=== PATIENT | female | born 1995 | race Hispanic/Latino ===

== ENCOUNTER 2024-06-15 11:17 | Emergency (ER) | payer OTHER, SELFPAY ==
[2024-06-15 11:26] VITALS: BP 119/88
[2024-06-15 11:52] LABS: % Basophils 0.4 % (0-2); % Eosinophils 0.3 % (0-6); % Immature Granulocytes 0.5 % (0-0.5); % Lymphocytes 21.2 % (20.5-51.1); % Neutrophils 69.6 % (42.2-75.2); Absolute Immature Granulocytes 0.1 10^3/uL (0-0.05); Absolute Lymphocytes 2.1 10^3/uL (1.2-3.4); Absolute Monocytes 0.8 10^3/uL (0.1-0.6); Absolute Neutrophils 6.9 10^3/uL (1.4-6.5); Hematocrit 39.5 % (37.0-47.0); Hemoglobin 13.6 g/dL (12.0-16.0); Mean Corp Hgb Conc. 34.4 g/dL (33.0-37.0); Mean Corpuscular Hgb 29.6 pg (27.0-31.0); Mean Corpuscular Volume 85.9 fL (81.0-99.0); Mean Platelet Volume 10.4 fL (7.4-10.4); Nucleated Red Blood Cells % 0 %; Platelet Count 246 10^3/uL (130-400); Red Cell Dist. Width 12.8 % (11.5-14.5); White Blood Cell Count 9.9 10^3/uL (4.8-10.8)
[2024-06-15 12:01] LABS: HCG, Serum Qualitative Screen Negative
[2024-06-15 12:05] LABS: ALT (SGPT) 21 U/L (0-35); AST (SGOT) 23 U/L (14-36); Albumin 4.8 g/dl (3.5-5.0); Alkaline Phosphatase 61 U/L (38-126); Blood Urea Nitrogen 19 mg/dl (7-17); Carbon Dioxide 23 mmol/L (22-30); Chloride 102 mmol/L (98-107); Glucose 107 mg/dl (70-99); Potassium 4.1 mmol/L (3.5-5.1); Sodium 138 mmol/L (135-145); Total Bilirubin 0.7 mg/dl (0.2-1.3); Total Protein 7.6 g/dl (6.3-8.2); eGFR > 60.00
[2024-06-15 12:36] LABS: TSH Reflex To Free T4 1.08 uIU/ml (0.47-4.68)
[2024-06-15 13:04] VITALS: BP 106/73
[2024-06-15 13:57] LABS: D-Dimer 0.38 ug/mlFEU (0.00-0.50)
[2024-06-15 14:00] VITALS: BP 102/64
--- NOTE | 2024-06-15 14:01 | ED.GENMED ---
History of Present Illness
General
Chief Complaint: Heart Rate Problem
Source: patient
Time Seen by Provider: 06/15/24 13:19
History of Present Illness
History of Present Illness:
29-year-old female with no significant past medical history presenting to the emergency department for evaluation of palpitations that began yesterday morning while she was at work accompanied with some mild chest discomfort with the chest
discomfort persisting today. The triage notes a pins and needle sensation to the left arm however patient and her brother who is with the patient states that the tingling sensation was only when the blood pressure cuff was taking pressure while in
triage. Patient states that she was at work at the time of the event and works as a sales floor team leader but was not doing any activities out of the ordinary. Patient does note that she drinks a fair quantity of caffeine in the mornings but did not drink
any more caffeine than usual last night. Patient denies any recent illnesses, fevers, cough, pleurisy, hemoptysis, lower extremity edema. She does take an oral contraceptive which she has been on for at least 4 years. No other concerns presently.
Family history noncontributory.
Past History
Past History
ED Past Medical History: None
ED Past Surgical History: None
Social History
Tobacco: Non-smoker
Alcohol: None
Drug: None
Personal: Single
Living: with family
Review of Systems
Review of Systems
All Other Systems: ROS reviewed and negative except as documented in HPI and ROS
Phy Exam
Physical Exam
Physical Exam:
GENERAL: Alert , in no apparent distress
EYE: conjunctiva clear
NECK: Supple
ENT: o/p clr, mmm.
CARDIAC: Regular rate and rhythm
LUNGS: Clear breath sounds bilaterally, no acute respiratory distress, no wheezes/rales/rhonchi
NEUROLOGICAL: Alert and oriented
SKIN: Warm and dry, skin intact.
MUSCULOSKELETAL: well perfused.
PSYCH: Normal and appropriate interaction.
Scores
Heart Failure Risk
Heart Failure Risk Score: Not Applicable
Heart Score for Chest Pain Patients
STEMI patient?: Not applicable
Withdrawal Assessment of Alcohol
Withdrawal Assessment Completed?: Not applicable
Course
Orders/Labs/Results
Orders:
Orders
06/15/24 11:18
ECG [Electrocardiogram (*1)] Urgent
Reason for Study: Palpitations
EKG- Treatment ONCE
06/15/24 11:27
Test Result ONCE
06/15/24 11:36
Complete Blood Count/With Diff Urgent
Comprehensive Metabolic Panel Urgent
HCG, Serum Qualitative Screen Urgent
TSH Reflex To Free T4 Urgent
06/15/24 13:32
DDimer [D-Dimer] Urgent
Troponin I Urgent
Abnormal Lab Results
06/15/24
11:36
Abs Immat Gran (auto) 0.1 H 10^3/uL
(0-0.05)
Absolute Neuts (auto) 6.9 H 10^3/uL
(1.4-6.5)
Absolute Monos (auto) 0.8 H 10^3/uL
(0.1-0.6)
BUN 19 H mg/dl
(7-17)
Glucose 107 H mg/dl
(70-99)
06/15/24 11:36
06/15/24 11:36
Vital Signs
Initial and Last Documented VS:
Initial Vital Signs
Temp Pulse Resp BP Pulse Ox
97.8 F 95 16 119/88 100
06/15/24 11:26 06/15/24 11:26 06/15/24 11:26 06/15/24 11:26 06/15/24 11:26
Last Documented Vital Signs
Temp Pulse Resp BP Pulse Ox
97.8 F 76 16 101/73 99
06/15/24 11:26 06/15/24 15:00 06/15/24 15:00 06/15/24 15:00 06/15/24 15:00
MDM/Problems Addressed
Differential Diagnosis Includes:
Caffeine consumption, PE considered given patient is on oral contraceptive, electrolyte disturbance, no symptoms to suggest infectious etiology, I have very minimal suspicion for ACS or other anginal equivalent
MDM/Problems Addressed:
29-year-old female presenting to the emergency department for evaluation of palpitations that began yesterday, resolved today however still with some mild chest discomfort today. Patient hemodynamically stable. EKG done in triage shows a normal
sinus rhythm. Labs were initiated. I did add on a D-dimer and troponin. Dimer was added due to patient being on an oral contraceptive although no other risk factors for PE. Disposition pending
*Pulse Oximetry
Patient hypoxic: no
*EKG
Heart Rate: 92
Rate: normal
Rhythm: sinus
[place]: normal axis
*Crm Campaign Manager Interpretation
Rate: normal
Rhythm: sinus
*Critical Care Note
Total Time (30-74mins, 75-104mins- exclusive of procedures): Not Applicable
Patient Management
Escalation/DeEscalation of care consider admission/obs:
Patient troponin and d-dimer are negative. she remains stable. Follow up with PCP. Aware of return precautions
ED Attending Note
-
Portions of this chart may have been created with voice recognition software.� Occasional wrong word or��sound alike� substitutions may have occurred due to the inherent limitations of voice recognition software.
Discharge Plan
Departure
Patient Disposition: Home (Routine Discharge)
Date of Disposition: 06/15/24
Time of Disposition: 14:51
Patient with high blood pressure during this ER visit?: No
Discharge Problem:
Palpitations
Instructions: Palpitations (DC)
Prescriptions:
New
ondansetron 4 mg tablet,disintegrating
4 mg PO Q8H Qty: 10 0RF
Referrals:
Ruesch,Melody, OUTSIDE [employer] [Family Provider] -
Interventions
Interventions:
*Risk Screen - Suicide Last Done: 06/15/24 11:26
*General Assessment Last Done: 06/15/24 15:05
*Neglect/Abuse Screening Last Done: 06/15/24 11:26
ED- Fall Risk Assessment Last Done: 06/15/24 13:25
*ED COVID-19 Vaccine History Last Done: 06/15/24 15:05
*Nursing Disposition Last Done: 06/15/24 15:05
ED- Cardiac Assessment Last Done: 06/15/24 13:25
ED- Pulmonary Assessment Last Done: 06/15/24 13:25
Discharge Date and Time
Discharge Date/Time: 06/15/24 15:06
Print Language: [facility]
[2024-06-15 14:06] LABS: Troponin I < 0.012 ng/ml
[2024-06-15 15:00] VITALS: BP 101/73
== END 2024-06-15 15:06 | disposition home or self-care (01) ==
LOC: EMR 11:17
PROVIDERS: Physician Assistant Medical; Student in an Organized Health Care Education/Training Program; EMERGENCY PHYSICIAN Emergency Medicine; FAMILY PHYSICIAN Nurse Practitioner Adult Health
DX: R00.2 Palpitations (principal); R07.89 Other chest pain
CPT/HCPCS: 99283; 80053; 84443; 84484; 84703; 85025; 85379; 93005

== ENCOUNTER → 2025-05-06 17:13 | Outpatient (REF) | payer OTHER, SELFPAY ==
[2025-05-06 18:34] LABS: TSH 1.49 uIU/ml (0.47-4.68)
== END ==
LOC: REG 17:13
PROVIDERS: ATTENDING PHYSICIAN Nurse Practitioner Adult Health
DX: R63.5 Abnormal weight gain (principal)
CPT/HCPCS: 36415; 84439; 84443